=== PATIENT | male | born 1950 | race Caucasian/White ===

== ENCOUNTER 2017-09-14 12:03 | Emergency (ER) | payer MEDICARE, BC ==
[2017-09-14 12:15] VITALS: BP 126/47
--- NOTE | 2017-09-14 12:50 | EDM.PDOC ---
ED HPI GENERAL MEDICAL PROBLEM - General Chief Complaint: Upper Extremity Injury/Pain Stated Complaint: FISH HOOK IN FINGER Time Seen by Provider: 09/14/17 12:23 Source of Information: Reports: Patient History Limitations: Reports: No Limitations - History of Present Illness INITIAL COMMENTS - FREE TEXT/NARRATIVE: Patient out fishing when he was hooked on his fishing lure. He has no complaints. Last tetanus was last year. No vascular complaints Onset: Today, Sudden Location: Reports: Upper Extremity, Right Quality: Reports: Sharp Worsens with: Reports: Movement - Related Data Allergies Allergy/AdvReac Type Severity Reaction Status Date / Time atorvastatin calcium Allergy Cannot Verified 09/14/17 12:19 [From Lipitor] Remember celecoxib [From Celebrex] Allergy Cannot Verified 09/14/17 12:19 Remember rosuvastatin calcium Allergy Cannot Verified 09/14/17 12:19 [From Crestor] Remember Home Meds: Home Meds Aspirin [Halfprin] 81 mg PO DAILY 06/21/13 [History] Lisinopril [Prinivil] 10 mg PO BEDTIME 06/21/13 [History] Methotrexate [Rheumatrex] 4 tab PO Q7D 06/21/13 [History] Metoprolol Tartrate [Lopressor] 12.5 mg PO BID 06/21/13 [History] Mirtazapine [Remeron] 15 mg PO BEDTIME 06/21/13 [History] Multivitamin [Multi Vitamin Daily] 1 each PO DAILY 06/21/13 [History] Simvastatin [Zocor] 40 mg PO BEDTIME 02/08/15 [History] Buprenorphine [Butrans] 1 each TD Q7D 07/27/15 [History] Calcium Carbonate [Tums] 0 mg PO BEDTIME 07/27/15 [History] Folic Acid 1 mg PO DAILY 10/03/16 [History] Naproxen Sodium [Aleve] 220 mg PO BID PRN 10/03/16 [History] Docusate Calcium 2 cap PO BEDTIME 12/05/16 [History] Dutasteride 0.5 mg PO DAILY 07/24/17 [History] Tamsulosin [Flomax] 1 cap PO DAILY 07/24/17 [History] Past Medical History Cardiovascular History: Reports: CAD, Hypertension Musculoskeletal History: Reports: Fibromyalgia, RA Psychiatric History: Reports: Depression - Infectious Disease History Infectious Disease History: Reports: Shingles Social & Family History - Family History Family Medical History: Noncontributory - Tobacco Use Smoking Status *Q: Unknown Ever Smoked Review of Systems - Review of Systems Review Of Systems: See Below Constitutional: Reports: No Symptoms Eyes: Reports: No Symptoms Ears: Reports: No Symptoms Nose: Reports: No Symptoms Mouth/Throat: Reports: No Symptoms Respiratory: Reports: No Symptoms Cardiovascular: Reports: No Symptoms GI/Abdominal: Reports: No Symptoms Genitourinary: Reports: No Symptoms Musculoskeletal: Reports: Other (finger pain) Skin: Reports: Wound (fish hook embedded in right index finger) Neurological: Reports: No Symptoms Psychiatric: Reports: No Symptoms ED EXAM, GENERAL - Physical Exam Exam: See Below Exam Limited By: No Limitations General Appearance: Alert, WD/WN, No Apparent Distress Skin Exam: Wound/Incision (puncture wound to right distal index finger without nail involvement) ED TRAUMA EXTREMITY PROCEDURES - Foreign Body Removal Indication:: fish hook Consent Obtained: Patient Performing Doctor:: Isaac Ceballos Foreign Body Other Location Comment:: hook to right index finger Anesthesia Type: Local (lidocaine 1 mL) Complications:: No Comments:: finger cleaned with chloroprep, anesthatized with 1% lidocaine with no epinephrine. Once localized anesthesia attained, fish hook was pushed through the finger. All parts of the hook are out and identified. Patient tolerated procedure well with no complaints. Dressing applied. Course - Vital Signs Last Recorded V/S: Last Vital Signs Temp 37.1 C 09/14/17 12:05 Pulse 58 L 09/14/17 12:05 Resp 16 09/14/17 12:05 BP 126/47 L 09/14/17 12:05 Pulse Ox 95 09/14/17 12:05 - Orders/Labs/Meds Meds: Medications Discontinued Medications Generic Name Dose Route Start Last Admin Trade Name Rajan PRN Reason Stop Dose Admin Lidocaine HCl 5 ml 09/14/17 12:25 Xylocaine-Mpf 1% INJECT 09/14/17 12:26 ONETIME ONE Departure - Departure Time of Disposition: 12:40 Disposition: Home, Self-Care 01 Condition: Good Clinical Impression: Fish hook injury of finger of right hand - Discharge Information Instructions: Puncture Wound, [id number] Additional Instructions: Keep clean and dry Wash with soap and water Signs of infection can be temperature, increased redness, swelling, wound becomes hot to the touch Follow up with your primary doctor as needed for symptom management Please call if you have any questions or concerns - Problem List & Annotations (1) Fish hook injury of finger of right hand SNOMED Code(s): 86389431 Code(s): S69.91XA - UNSP INJURY OF RIGHT WRIST, HAND AND FINGER(S), INIT ENCNTR Status: Acute Priority: Low Qualifiers: Encounter type: initial encounter Qualified Code(s): S69.91XA - Unspecified injury of right wrist, hand and finger(s), initial encounter - Problem List Review Problem List Initiated/Reviewed/Updated: Yes - Assessment/Plan Assessment:: finger laceration right index finger Plan: Keep clean and dry Wash with soap and water Signs of infection can be temperature, increased redness, swelling, wound becomes hot to the touch Follow up with your primary doctor as needed for symptom management Please call if you have any questions or concerns
== END 2017-09-14 12:44 | disposition home or self-care (01) ==
LOC: VM.ED 12:03
DX: S60.450A Superficial foreign body of right index finger, initial encounter (principal); W45.8XXA Other foreign body or object entering through skin, initial encounter
CPT/HCPCS: 10120; 99283; 99283-GF-25